=== PATIENT | male | born 1955 | race Caucasian/White ===

== ENCOUNTER 2017-11-04 22:49 | Emergency (ER) | payer SELFPAY ==
[2017-11-04 23:31] VITALS: BP 143/96; PULSE 73; RESP 20; TEMP 98.1
--- NOTE | 2017-11-04 23:50 | C.PDOC ---
History Of Present Illness 62 y/o M c PMHx DVT over decade ago p/w R leg "warm" feeling medially x 6 weeks. The feeling is intermittent, seems to improve with compresses and elevation but because it has been so persistent, states he is concerned for DVT. He denies erythema, trauma, fall, plane ride or other travel, hormone use, chest pain, dyspnea, hemoptysis, edema. Time Seen by Provider: 11/04/17 23:45 Chief Complaint (Nursing): Lower Extremity Problem/Injury Past Medical History Vital Signs: Last Vital Signs Temp 98.1 F 11/04/17 23:55 Pulse 73 11/04/17 23:55 Resp 20 11/04/17 23:55 BP 143/96 H 11/04/17 23:55 Pulse Ox 98 11/04/17 23:55 - Medical History PMH: Asthma, Deep Vein Thrombosis, Fibromyalgia (walks with a cane) Family History: States: Unknown Family Hx - Social History Hx Tobacco Use: No Hx Alcohol Use: Yes Hx Substance Use: No - Immunization History Hx Tetanus Toxoid Vaccination: No Hx Influenza Vaccination: No Hx Pneumococcal Vaccination: No Review Of Systems Except As Marked, All Systems Reviewed And Found Negative. Constitutional: Negative for: Fever Cardiovascular: Negative for: Chest Pain Physical Exam - Physical Exam Additional Physical Exam Comments: Gen: NAD head: NC Eyes: No scleral icterus ENT: MMM Chest: No tenderness CV: Regular rate Lungs: CTA b/l Abd: Soft Extremities: No edema, FROM, no tenderness Skin: No rash or erythema or ecchymosis Neuro: Alert ED Course And Treatment O2 Sat by Pulse Oximetry: 97 Medical Decision Making Medical Decision Making: Doppler closed, will return tomorrow for doppler. Patient with no edema or current pain and symptoms of 6 weeks, patient declined lovenox. Disposition - Disposition Disposition: HOME/ ROUTINE Disposition Time: 23:47 Condition: STABLE Additional Instructions: Please return tomorrow at 9am and a doppler of your leg to rule out a blood clot can be performed. Instructions: Deep Vein Thrombosis (Blood Clots in the Legs) Forms: [employer] (Slovak) - Clinical Impression Clinical Impression: Lower limb symptom
[2017-11-05 00:38] VITALS: O2SAT 97
== END 2017-11-04 23:50 | disposition home or self-care (01) ==
LOC: C.ER 22:49
DX: R68.89 Other general symptoms and signs (principal)

== ENCOUNTER 2017-11-05 09:07 | Emergency (ER) | payer SELFPAY ==
[2017-11-05 09:13] VITALS: RESP 18; TEMP 98.5
--- NOTE | 2017-11-05 11:14 | C.PDOC ---
History Of Present Illness 62 y/o male returns to the ED today for US Doppler study of the right lower extremity. Patient has prior history of DVT in the right leg, and states he was on anticoagulants for 9 months. He was seen yesterday for right leg pain and had normal exam, no labs, declined lovenox at that time. Otherwise he currently denies any chest pain, SOB, weakness, numbness, tingling, or other associated symptoms. Time Seen by Provider: 11/05/17 09:16 Chief Complaint (Nursing): Medical Clearance History Per: Patient History/Exam Limitations: no limitations Onset/Duration Of Symptoms: Days Current Symptoms Are (Timing): Better Past Medical History Reviewed: Historical Data, Nursing Documentation, Vital Signs Vital Signs: Last Vital Signs Temp 98.5 F 11/05/17 09:09 Pulse 82 11/05/17 09:09 Resp 18 11/05/17 09:09 BP 132/91 H 11/05/17 09:09 Pulse Ox 97 11/05/17 11:18 - Medical History PMH: Asthma, Deep Vein Thrombosis, Fibromyalgia (walks with a cane) Family History: States: Unknown Family Hx - Social History Hx Tobacco Use: No Hx Alcohol Use: Yes Hx Substance Use: No - Immunization History Hx Tetanus Toxoid Vaccination: No Hx Influenza Vaccination: No Hx Pneumococcal Vaccination: No Review Of Systems Except As Marked, All Systems Reviewed And Found Negative. Constitutional: Negative for: Fever Cardiovascular: Negative for: Chest Pain, Palpitations Respiratory: Negative for: Shortness of Breath Musculoskeletal: Positive for: Leg Pain Skin: Negative for: Rash Neurological: Negative for: Weakness, Numbness, Incoordination Physical Exam - Physical Exam Appears: Well, Non-toxic, No Acute Distress Skin: Warm, Dry, No Rash Head: Atraumatic, Normacephalic Eye(s): bilateral: Normal Inspection Neck: Normal ROM Chest: Symmetrical Cardiovascular: Rhythm Regular, No Murmur Respiratory: Normal Breath Sounds, No Accessory Muscle Use, Other (No acute distress) Extremity: Normal ROM (of B/L lower extremities), No Pedal Edema (or swelling to calves), No Calf Tenderness, Other (Negative Homans sign) Pulses: Left Dorsalis Pedis: Normal, Right Dorsalis Pedis: Normal Neurological/Psych: Oriented x3, Normal Speech, Normal Motor, Normal Sensation Gait: Steady ED Course And Treatment O2 Sat by Pulse Oximetry: 97 (RA) Pulse Ox Interpretation: Normal Medical Decision Making Medical Decision Making: Impression: mild discomfort @ R calf/knee area normal and symmetrical exam of legs Plan: * Doppler US, Bilateral LE US is negative for DVT in the bilateral legs. Patient counseled regarding findings and follow up instructions. Disposition Counseled Patient/Family Regarding: Studies Performed, Diagnosis, Need For Followup - Disposition Referrals: [facility] [Outside] [facility] [Outside] [facility] [Outside] Disposition: HOME/ ROUTINE Disposition Time: 11:14 Condition: GOOD Additional Instructions: Ultrasound Exam is NEGATIVE for DVT of BOTH legs continue motrin/Advil as needed follow-up with your PMD as needed. Forms: General Discharge Instructions, [facility] (Sing[place]an) - POA Present On Arrival: None - Clinical Impression Clinical Impression: Lower limb symptom - Scribe Statement The provider has reviewed the documentation as recorded by the Dianna Cortez Provider Attestation: All medical record entries made by the Maryibrosalind were at my direction and personally dictated by me. I have reviewed the chart and agree that the record accurately reflects my personal performance of the history, physical exam, medical decision making, and the department course for this patient. I have also personally directed, reviewed, and agree with the discharge instructions and disposition.
--- NOTE | 2017-11-05 11:15 | C.PDOC ---
Time Seen by Provider: 11/05/17 09:16 Chief Complaint (Nursing): Medical Clearance Past Medical History Vital Signs: Last Vital Signs Temp 98.5 F 11/05/17 09:09 Pulse 82 11/05/17 09:09 Resp 18 11/05/17 09:09 BP 132/91 H 11/05/17 09:09 Pulse Ox 97 11/05/17 09:09 - Medical History PMH: Asthma, Deep Vein Thrombosis, Fibromyalgia (walks with a cane) Family History: States: Unknown Family Hx - Social History Hx Tobacco Use: No Hx Alcohol Use: Yes Hx Substance Use: No - Immunization History Hx Tetanus Toxoid Vaccination: No Hx Influenza Vaccination: No Hx Pneumococcal Vaccination: No ED Course And Treatment O2 Sat by Pulse Oximetry: 97 Medical Decision Making Medical Decision Making: mild discomfort @ R calf/knee area normal and symmetrical exam of legs US neg for DVT Disposition Doctor Will See Patient In The: Office Counseled Patient/Family Regarding: Studies Performed, Diagnosis - Disposition Disposition: HOME/ ROUTINE Disposition Time: 11:14 Condition: GOOD - Clinical Impression Clinical Impression: Lower limb symptom
[2017-11-05 11:24] VITALS: BP 128/87; PULSE 70; O2SAT 95
--- NOTE | 2017-11-05 14:08 | VASCLAB ---
Date of service: 11/05/2017 PROCEDURE: Lower Extremity Venous Duplex Exam. HISTORY: DVT PRIORS: 11/2013, normal exam. TECHNIQUE: Bilateral common femoral, femoral, popliteal and posterior tibial, peroneal and great saphenous veins were evaluated. Flow was assessed with color Doppler, compressibility, assessment of phasic flow and augmentation response. Report prepared by GABBY Baird FINDINGS: RIGHT: 1. Common Femoral Vein: 1.1. Compressibility - Fully compressible: Thrombus - None : Flow - Phasic: Augmentation -Normal: Reflux - None. 2. Femoral Vein: 2.1. Compressibility - Fully compressible: Thrombus - None : Flow - Phasic: Augmentation -Normal: Reflux - None. 3. Popliteal Vein: 3.1. Compressibility - Fully compressible: Thrombus - None : Flow - Phasic: Augmentation -Normal: Reflux - None. 4. Posterior Tibial Vein: 4.1. Compressibility - Fully compressible: Thrombus - None: Flow - Phasic: Augmentation -Normal: Reflux - None. 5. Peroneal Vein: 5.1. Compressibility - Fully compressible: Thrombus - None: Flow - Phasic: Augmentation -Normal: Reflux - None. 6. Great Saphenous Vein: 6.1. Compressibility - Fully compressible: Thrombus - None: Flow - Phasic: Augmentation - Normal: Reflux - None. LEFT: 1. Common Femoral Vein: 1.1. Compressibility - Fully compressible: Thrombus - None: Flow - Phasic: Augmentation -Normal: Reflux - None. 2. Femoral Vein: 2.1. Compressibility - Fully compressible: Thrombus - None: Flow - Phasic: Augmentation -Normal: Reflux - None. 3. Popliteal Vein: 3.1. Compressibility - Fully compressible: Thrombus - None : Flow - Phasic: Augmentation -Normal: Reflux - None. 4. Posterior Tibial Vein: 4.1. Compressibility - Fully compressible: Thrombus - None: Flow - Phasic: Augmentation -Normal: Reflux - None. 5. Peroneal Vein: 5.1. Compressibility - Fully compressible: Thrombus - None: Flow - Phasic: Augmentation -Normal: Reflux - None. 6. Great Saphenous Vein: 6.1. Compressibility - Fully compressible: Thrombus - None: Flow - Phasic: Augmentation - Normal: Reflux - None. OTHER FINDINGS: Right: None significant. Left: None significant. IMPRESSION: Right: No evidence of deep or superficial vein thrombosis of the right lower extremity. Normal valve function noted of the right side. Left: No evidence of deep or superficial vein thrombosis of the left lower extremity. Normal valve function noted of the left side.
== END 2017-11-05 11:25 | disposition home or self-care (01) ==
LOC: C.ER 09:07
DX: M79.604 Pain in right leg (principal)